=== PATIENT | female | born 1960 | race Caucasian/White ===

== ENCOUNTER 2023-03-23 07:19 | Emergency (ER) | payer OTHER ==
[2023-03-23] MEDS ORDERED: Orphenadrine Citrate 60 MG/2 ML VIAL ONE (08:00)
[2023-03-23 09:15] LABS: %Basophils 1.3 % (0.0-1.0); %Eosinophils 1.2 % (0.0-10.0); %Lymphocytes 36.6 % (21.0-51.0); %Monocytes 5.5 % (0.0-10.0); %Neutrophils 55.4 % (42.0-75.0); Hematocrit 46.5 % (36.0-47.0); Hemoglobin 15.7 g/dL (12.0-16.0); Mean Corpuscular HGB CONC 33.8 g/dL (32.0-36.0); Mean Corpuscular Hemoglobin 30.6 pg (27.0-31.0); Mean Corpuscular Volume 90.6 fl (78.0-98.0); Mean Platelet Volume 9.8 fL (7.4-10.4); Platelet Count 254 10x3/uL (130-400); RBC Distribution Width 12.2 % (11.5-14.5); Red Blood Cell (RBC) Count 5.13 mill/uL (4.20-5.40); White Blood Cell (WBC) Count 8.1 10x3/uL (4.8-10.8)
[2023-03-23 09:16] LABS: #Basophils 0.1 thou/uL (0.0-0.2); #Eosinphils 0.1 thou/uL (0.0-0.7); #Lymphocytes 2.9 thou/uL (1.20-3.40); #Monocytes 0.4 thou/uL (0.11-0.59); #Neutrophils 4.5 thou/uL (1.40-6.50)
[2023-03-23 09:31] LABS: BUN (Urea Nitrogen) 21 mg/dL (9.8-20.1); Carbon Dioxide 17 mmol/L (22-29); Chloride 108 mmol/L (98-107); Potassium 4.6 mmol/L (3.5-5.1); Sodium 138 mmol/L (136-145); Troponin I Less than 0.010 ng/mL (< 0.028)
[2023-03-23 09:32] LABS: Albumin 3.9 g/dL (3.5-5.0); Alkaline Phosphatase 83 U/L (40-110); Bilirubin, Total 0.5 mg/dL (0.2-1.2); Calc. Creatinine Clearance 0 mL/min (70-130); Estimated GFR 69; Globulin 3.3 g/dL (2.4-3.5); Glucose 274 mg/dL (70-105); Protein, Total 7.2 g/dL (6.0-8.3)
[2023-03-23 09:33] LABS: ALT (SGPT) 23 U/L (8-55); AST (SGOT) 20 U/L (5-34); Anion Gap 18 mmol/L (10-20); Magnesium 1.3 mg/dL (1.6-2.6)
[2023-03-23 10:28] LABS: Bicarbonate (HCO3v) 19.8 mmol/L (22.0-28.0); CO2 Tension (PvCO2) 26.6 mmHg (42.0-51.0); Chloride 111 mmol/L (98-107); Hemoglobin - Calc 15.9 g/dL (12.0-16.0); Potassium 4.6 mmol/L (3.5-5.1); Sodium 139 mmol/L (138-145); T. Carbon Dioxide 20.6 mmol/L (22.0-28.0); vO2 Saturation-calc 99.8 % (60.0-85.0)
[2023-03-23] MEDS ORDERED: Magnesium 2 GM/50 ML BAG (IN WATER) ONE (10:31)
[2023-03-23] MEDS ORDERED: Lactated Ringer's 1,000 ML ONE (10:31)
[2023-03-23] MEDS ORDERED: Lidocaine 4% Patch ONE (11:37)
[2023-03-23] MEDS ORDERED: Acetaminophen 500 MG TAB ONE (11:37)
== END 2023-03-23 12:14 | disposition home or self-care (01) ==
LOC: MADERS 07:19
DX: M48.061 Spinal stenosis, lumbar region without neurogenic claudication (principal); E11.65 Type 2 diabetes mellitus with hyperglycemia; E83.42 Hypomagnesemia; M51.36 Other intervertebral disc degeneration, lumbar region; I10 Essential (primary) hypertension; E78.5 Hyperlipidemia, unspecified; K21.9 Gastro-esophageal reflux disease without esophagitis; Z87.891 Personal history of nicotine dependence; Z79.899 Other long term (current) drug therapy
CPT/HCPCS: 36416; 70450; 71045; 72131; 80053; 82010; 82330; 82803; 83735; 84484; 85025; 93005; 96365; 96372; 36415-59; J2360; J3475; J7120